=== PATIENT | male | born 1985 | race Caucasian/White ===

== ENCOUNTER 2024-03-16 13:19 | Emergency (ER) | payer OTHER ==
[~2024-03-16] VITALS: Ht 190.5 cm; Wt 142.9 kg
[2024-03-16] MEDS ORDERED: MOUNJARO2.5 MG/0.5 (13:44)
[2024-03-16] MEDS ORDERED: LISINOPRIL10 MG PO (13:44)
[2024-03-16] MEDS ORDERED: XIGDUO XR 10 M1 EAC1 (13:44)
[2024-03-16] MEDS ORDERED: ATORVASTATIN CA20 MG PO (13:44)
[2024-03-16] MEDS: ONDANSETRON HCL INJ 2MG/ML 2ML 2 MG/ML VIAL IV STA (13:48)
[2024-03-16] MEDS: SODIUM CHLORIDE 0.9% 1000ML 1,000 ML IV ONE (13:48)
[2024-03-16] MEDS ORDERED: SODIUM CHLORIDE 0.9% 1000ML 1,000 ML ONE (13:50)
[2024-03-16] MEDS ORDERED: ONDANSETRON ODT4 MG PO (14:18)
[2024-03-16] MEDS ORDERED: LOPERAMIDE2 MG PO (14:18)
[2024-03-16 14:53] VITALS: PULSE 94; RESP 18; TEMP 98.6; O2SAT 99
== END 2024-03-16 14:53 | disposition home or self-care (01) ==
LOC: FSED 13:22
DX: R11.2 Nausea with vomiting, unspecified (principal); R19.7 Diarrhea, unspecified; R53.81 Other malaise
CPT/HCPCS: 80053; 96374; 99283; J2405; J7030